=== PATIENT | female | born 1995 | race African-American/Black ===

== ENCOUNTER 2018-06-30 08:59 | Emergency (ER) | payer OTHER ==
[~2018-06-30] VITALS: Ht 162.6 cm; Wt 54.5 kg
[2018-06-30 09:44] VITALS: BP 128/74
== END 2018-06-30 10:00 | disposition home or self-care (01) ==
LOC: EMS 09:00
DX: H00.014 Hordeolum externum left upper eyelid (principal); H11.002 Unspecified pterygium of left eye